=== PATIENT | female | born 1995 | race Two or more races ===

== ENCOUNTER 2022-12-03 19:53 | Inpatient (IN) | payer OTHER ==
[~2022-12-03] VITALS: Ht 167.6 cm; Wt 81.2 kg
[2022-12-04] MEDS ORDERED: PRENATABS RX T1 EACH PO (13:28)
== END 2022-12-09 15:56 | disposition home or self-care (01) | DRG 788 ==
LOC: LDR 19:53 → O/R 12-06 16:24 → OB/GYN 12-06 18:48
PROVIDERS: ADMIT Obstetrics & Gynecology Obstetrics; ATTEND Obstetrics & Gynecology Obstetrics
PROC: 4A1HXCZ Monitoring of Products of Conception, Cardiac Rate, External Approach (ICD-10-PCS; 2022-12-03)
PROC: 10D00Z1 Extraction of Products of Conception, Low, Open Approach (ICD-10-PCS; principal; 2022-12-06 16:00)
DX: O36.8330 Maternal care for abnormalities of the fetal heart rate or rhythm, third trimester, not applicable or unspecified (principal); Z3A.36 36 weeks gestation of pregnancy; Z37.0 Single live birth; Z20.822 Contact with and (suspected) exposure to COVID-19